=== PATIENT | female | born 1960 | race Caucasian/White ===

== ENCOUNTER → 2018-04-09 09:41 | Outpatient (CLI) | payer OTHER, SELFPAY ==
--- NOTE | 2018-04-09 | DI.NM.S_ITS ---
PROCEDURE: NM BONE SCAN WHOLE BODY RADIOPHARMACEUTICAL: 19.7 mCi Tc-99m MDP IV. INDICATIONS: PAIN IN RIGHT KNEE TECHNIQUE: Delayed whole-body scintigrams were obtained approximately 3-4 hours after intravenous injection of radiotracer. Anterior and posterior views were acquired from vertex to feet. Additional left and right oblique views of the knees were obtained. COMPARISON: [facility], CR, XR KNEE ARTHRITIC SERIES RT, 03/31/2018, 14:35. [facility], LIOR, KNEE 1-2 VIEWS RIGHT, 05/14/2016, 10:39. 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 There is subtly increased radiotracer adjacent to the tibial component of the right knee prosthesis. Mild radiotracer uptake noted in the shoulders and mid feet bilaterally compatible with osteoarthritis. No abnormal soft tissue uptake of activity in kidneys is normal and symmetric. IMPRESSION: Increased radiotracer uptake adjacent to the tibial component of the right knee arthroplasty concerning for early loosening or infection. Dictated by: Amna Newman MD, PhD on 04/09/2018 at 16:19 Approved by: Amna Newman MD, PhD on 04/09/2018 at 16:28
== END ==
PROVIDERS: PCP Physician Assistant; Visit Provider Orthopaedic Surgery
DX: M25.561 Pain in right knee (principal)
CPT/HCPCS: 78306; A9503

== ENCOUNTER → 2019-07-27 15:33 | Outpatient (CLI) | payer OTHER, SELFPAY ==
--- NOTE | 2019-07-27 | DI.MRI.S_ITS ---
PROCEDURE: MR SHOULDER RT WO CON INDICATIONS: Pain in right shoulder TECHNIQUE: Noncontrast oblique coronal T2 fast spin echo with fat saturation, oblique sagittal T1 spin echo and T2 fast spin echo with fat saturation, axial T1 spin echo and T2 fast spin echo with fat saturation through the shoulder. COMPARISON: None. FINDINGS: Image quality: Excellent. Rotator cuff: Tendinosis and moderate grade articular surface partial-thickness tear involving distal supraspinatus at its insertion the humeral head extending to musculotendinous junction is seen. Distal infraspinatus tendinosis is seen. Distal subscapularis tendon is intact. Sagittal images demonstrate very mild supraspinatus muscle atrophy. Bones and bursae: No bone marrow contusions or fractures. Moderate acromioclavicular joint and glenohumeral joint osteoarthritic changes are seen. There is small to moderate amount of joint fluid, no gross intra-articular loose body.. Capsule and soft tissues: In the absence of intra-articular contrast, there is suggestion of superior anterior labral tear at 12 to 2:00 position. The glenohumeral ligaments appear intact. Tendinosis and low-grade partial-thickness tear involving proximal intra-articular portion of long head of biceps tendon is seen. The rotator interval appears normal, without fibrosis. The coracohumeral ligament is normal in thickness. IMPRESSION: 1. Tendinosis and moderate grade articular surface partial-thickness tear involving distal supraspinatus. Distal infraspinatus and subscapularis tendinosis. Mild supraspinatus muscle atrophy. 2. Finding is suggestive of superior anterior labral tear at the 12 to 2:00 position. 3. Tendinosis and low-grade partial-thickness tear involving proximal intra-articular portion of long head of biceps tendon. 4. Moderate acromioclavicular joint and glenohumeral joint osteoarthritis. Dictated by: Malachi Muñiz M.D. on 07/27/2019 at 16:25 Approved by: Malachi Muñiz M.D. on 07/27/2019 at 16:29
== END ==
PROVIDERS: PCP Physician Assistant; Referring Provider Physician Assistant; Visit Provider Physician Assistant
DX: M25.511 Pain in right shoulder (principal); S46.111A Strain of muscle, fascia and tendon of long head of biceps, right arm, initial encounter; M75.111 Incomplete rotator cuff tear or rupture of right shoulder, not specified as traumatic; M19.011 Primary osteoarthritis, right shoulder
CPT/HCPCS: 73221

== ENCOUNTER → 2020-08-15 13:36 | Outpatient (CLI) | payer OTHER, SELFPAY ==
--- NOTE | 2020-08-15 | DI.RAD.S_ITS ---
PROCEDURE: FL SHOULDER INJECTION MR/CT RT INDICATIONS: Strain of muscle(s) and tendon(s) COMPARISON: None. TECHNIQUE: The indications, alternatives, benefits, risks, and complications of the procedure were explained to the patient. Written informed consent was obtained and placed in the chart. The shoulder was examined fluoroscopically and a site for needle placement chosen for entry into the glenohumeral joint from an anterior approach. The skin was prepped and draped in a sterile fashion, and 1% lidocaine infiltrated from skin down to joint capsule. A spinal needle was inserted into the glenohumeral joint, and a small amount of iodinated contrast media injected to confirm intra-articular placement of the needle tip. This was followed by approximately 12 mL dilute solution of a gadolinium containing MR contrast agent. The needle was removed and a dressing was applied. The patient was given postprocedural instructions and sent to the MR suite for MR imaging. FINDINGS: A single fluoroscopic spot image demonstrates intra-articular location of injected iodinated contrast. IMPRESSION: Successful fluoroscopically guided administration of dilute Gadolinium solution into the shoulder joint for MR arthrogram. Dictated by: Pj Galloway M.D. on 08/15/2020 at 15:10 Approved by: Pj Galloway M.D. on 08/15/2020 at 15:10
== END ==
PROVIDERS: Referring Provider Orthopaedic Surgery; Visit Provider Orthopaedic Surgery
DX: S46.011A Strain of muscle(s) and tendon(s) of the rotator cuff of right shoulder, initial encounter (principal); Z53.20 Procedure and treatment not carried out because of patient's decision for unspecified reasons
CPT/HCPCS: 23350; 77002

== ENCOUNTER → 2024-09-11 08:29 | Outpatient (CLI) | payer OTHER, SELFPAY ==
--- NOTE | 2024-09-11 08:30 | DI.MG.S_ITS ---
MM diagnostic mammo unilat LT, US breast LT limited: 09/11/2024 BI-RADS: 2 CLINICAL: 64-year old female for left diagnostic mammogram and left diagnostic breast ultrasound. The patient presents for additional evaluation of an inconclusive screening mammogram - asymmetry. Tyrer-Cuzick lifetime risk of 8.2%. Current reported family history of breast cancer: maternal grandmother, paternal grandmother and mother. PRIOR EXAMS Outside films 07/29/2024, 02/07/2023, 10/02/2021, 09/18/2018. MAMMOGRAPHY TECHNIQUE: 2D and 3D (tomosynthesis) digital mammographic views obtained, with additional images as needed for full coverage. Current study was also evaluated with a Computer Aided Detection (CAD) system. ULTRASOUND TECHNIQUE TARGETED Left Breast Ultrasound: Real-time ultrasound exam was performed focused to area of clinical and/or imaging concern. DENSITY Left: B. There are scattered areas of fibroglandular density. MAMMOGRAPHY FINDINGS Left (finding-1): Outer at 3:00, Middle depth, measuring 0.7 cm: Correlating with findings on screening mammogram there is a microlobulated, equal-density mass present. ULTRASOUND FINDINGS Left (finding-1): Outer at 3:00, 3 cm from nipple, measuring 0.7 x 0.3 x 0.7 cm: Correlating with findings on mammogram there is a simple cyst present. IMPRESSION: Left * No evidence of malignancy with benign findings. RECOMMENDATIONS Bilateral * Annual screening mammography in eleven months. OVERALL ASSESSMENT CATEGORY BI-RADS-2: Benign. The [employer] recommends annual screening mammography beginning at age 40 for women with average risk of breast cancer. ELECTRONICALLY SIGNED: Janeth Hussein M.D. on 09/11/2024 at 09:43:27 AM PT Interpreting Station ID: [id number]
== END ==
LOC: MAMMO 08:30
DX: N60.02 Solitary cyst of left breast (principal); R92.8 Other abnormal and inconclusive findings on diagnostic imaging of breast; Z80.3 Family history of malignant neoplasm of breast
CPT/HCPCS: 76642; 77065; G0279